=== PATIENT | female | born 2000 | race Caucasian/White ===

== ENCOUNTER 2024-02-16 08:38 | Emergency (ER) | payer OTHER, SELFPAY ==
--- NOTE | ~2024-02-16 | XR_ITS ---
XR lumbar spine 2-3V 02/16/2024 09:27 Indication: Low back pain Procedure: 4 views lumbar spine Comparison: No prior studies for comparison. Findings: Mild dextroscoliosis. Vertebral body heights are maintained. Pedicles intact. No fracture, subluxation or dislocation. There is mild disc narrowing at L5-S1. Sacral foramen are symmetric. Impression: 1: Mild lumbar spondylosis with dextrocurvature of the lumbar spine. Reviewed, dictated and finalized at location B. Impression: 1: Mild lumbar spondylosis with dextrocurvature of the lumbar spine.
[2024-02-16 08:43] VITALS: BP 137/82; PULSE 102; RESP 20; TEMP 36.9; O2SAT 100
[2024-02-16] MEDS: KETOROLAC (*BKC) 60 MG/2 ML VIAL IM (09:02)
[2024-02-16] MEDS: CYCLOBENZAPRINE HCL 10 MG TABLET PO (09:02)
--- NOTE | 2024-02-16 09:13 | ED.BACK ---
HPI - Back Pain/Injury General Chief Complaint: Back Pain/Injury Stated Complaint: back pain Time Seen by Provider: 02/16/24 08:42 History of Present Illness HPI Narrative: Patient is a 24-year-old female who presents the ER with back pain. Ongoing for 2 days. Aching. Goes into the legs bilaterally but the left is worse than the right. No numbness or tingling. No difficulty with urination or defecation. No improvement with Tylenol at home. Denies any trauma but does bend over a lot at work. Related Data Allergies Allergy/AdvReac Type Severity Reaction Status Date / Time No Known Allergies Allergy Verified 02/16/24 08:49 Review of Systems Review of Systems: All systems reviewed & are unremarkable except as noted in HPI and below Constitutional: Constitutional: Reports no additional constitutional complaints Gastrointestinal: Gastrointestinal: Reports no additional gastrointestinal complaints Genitourinary: Genitourinary: Reports no additional female genitourinary complaints Musculoskeletal: Musculoskeletal: Reports back pain, Denies arthralgias and Denies joint swelling Neurologic: Denies focal weakness and Denies numbness PMF Past Medical History Medical History (Updated 02/16/24 @ 11:28 by Trev Martinez MD) Healthy female adult Surgical History Surgical History (Updated 02/16/24 @ 09:14 by Trev Martinez MD) No history of previous surgery Exam Narrative: GENERAL: Well-appearing, obese, and in no acute distress. HEAD: Normocephalic, atraumatic. CHEST: Clear to auscultation. No respiratory distress. HEART: Regular rate and rhythm. Normal peripheral pulses. BACK: No midline tenderness of the T/L-spine. There is bilateral paraspinal muscle tenderness without discernible spasm. EXTREMITIES: Normal range of motion. No edema. SKIN: Warm, dry, no rash. NEURO: Alert and oriented x3. PSYCH: Normal mood and affect. Course Course Emergency Course: Patient is still having discomfort despite Toradol and Flexeril. Discussed imaging results. Discharge home with Medrol Dosepak and Flexeril. Vital Signs Vital signs: Vital Signs Temperature 98.4 F 02/16/24 08:43 Pulse Rate 102 H 02/16/24 08:43 Respiratory Rate 20 02/16/24 08:43 Blood Pressure 137/82 02/16/24 08:43 Pulse Oximetry 100 02/16/24 08:43 Oxygen Delivery Room Air 02/16/24 08:43 Temperature 98.4 F 02/16/24 08:43 Pulse Rate 83 02/16/24 11:14 Respiratory Rate 18 02/16/24 11:14 Blood Pressure 121/61 02/16/24 11:14 Pulse Oximetry 100 02/16/24 11:14 Oxygen Delivery Room Air 02/16/24 08:43 MDM - Back Pain/Injury Imaging Data Radiologist's impression: ITS Impressions Lumbar Spine X-Ray 02/16/24 09:44 Impression: 1: Mild lumbar spondylosis with dextrocurvature of the lumbar spine. Discharge Plan Discharge Clinical Impression: Sciatica Patient Disposition: Home, Self-Care Condition: Stable Instructions: Sciatica (ED) Additional Instructions: Please return to the emergency department if you develop severe pain that is not controlled by pain medications or if you are unable to walk because of pain or weakness. Return to the emergency department immediately if you develop fevers, loss of bowel or bladder control (dribbling of urine or having accidents you wouldn't normally have), inability to urinate, numbness of your genital or anal area, or weakness/numbness of your legs or arms as these could all be signs of a serious medical emergency. Prescriptions: New methylprednisolone [Medrol (Bunny)] 4 mg tablets,dose pack See Rx Instructions .ROUTE .COMPLEX Qty: 21 0RF Rx Instructions: orally per package directions cyclobenzaprine 10 mg tablet 10 mg PO TID PRN (Reason: muscle spasm) Qty: 20 0RF Follow-up/Referrals: Matt Ryan MD [Physician] - 1 Week UNKNOWN,DOCTOR [Primary Care Provider] -
[2024-02-16 11:14] VITALS: BP 121/61; PULSE 83; RESP 18; O2SAT 100
== END 2024-02-16 11:43 | disposition home or self-care (01) ==
PROVIDERS: Emergency Provider Emergency Medicine
DX: M54.42 Lumbago with sciatica, left side (principal); M54.41 Lumbago with sciatica, right side; M47.816 Spondylosis without myelopathy or radiculopathy, lumbar region
CPT/HCPCS: 72100; 96372; 99283; A9270; J1885